=== PATIENT | female | born 1950 | race Two or more races ===

== ENCOUNTER 2016-04-17 20:10 | Emergency (ER) | payer OTHER, MEDICAID ==
[2016-04-17] MEDS ORDERED: ACETAMINOPHEN WITH CODEINE #3 TABLET PO ONE (21:54)
--- NOTE | 2016-04-17 21:54 | ER Document Report ---
ED General - General Chief Complaint: Medication Refill Stated Complaint: LOWER BACK PAIN TRAVEL OUTSIDE OF THE [place] IN LAST 30 DAYS: No - Related Data Allergies/Adverse Reactions: tramadol [Tramadol] Allergy (Verified 04/03/15 22:58) Past Medical History - General Information source: Patient - Social History Smoking Status: Never Smoker Family History: Reviewed & Not Pertinent Endocrine Medical History: Reports: Hx Diabetes Mellitus Type 2 Past Surgical History: Reports: Hx Cardiac Surgery Review of Systems - Review of Systems Constitutional: No symptoms reported EENT: No symptoms reported Cardiovascular: No symptoms reported Respiratory: No symptoms reported Gastrointestinal: No symptoms reported Genitourinary: No symptoms reported Female Genitourinary: No symptoms reported Musculoskeletal: Back pain, Muscle pain Skin: No symptoms reported Hematologic/Lymphatic: No symptoms reported Neurological/Psychological: No symptoms reported Physical Exam - Vital signs Vitals: Temp Pulse Resp BP Pulse Ox 98.0 F 60 20 148/66 H 95 04/17/16 21:10 04/17/16 21:10 04/17/16 21:10 04/17/16 21:10 04/17/16 21:10 Interpretation: Normal - General General appearance: Appears well, Alert - HEENT Head: Normocephalic, Atraumatic Eyes: Normal Pupils: PERRL - Respiratory Respiratory status: No respiratory distress Chest status: Nontender Breath sounds: Normal Chest palpation: Normal - Cardiovascular Rhythm: Regular Heart sounds: Normal auscultation Murmur: No - Abdominal Inspection: Normal Distension: No distension Bowel sounds: Normal Tenderness: Nontender Organomegaly: No organomegaly - Back Back: Normal - No numbness no tingling no loss of bowel or bladder function or saddle anesthesia ambulatory with arrhythmic limp, Nontender, Other - Lumbar pain lateral to the thoracic spine no step-off no crepitus no new injury. - Extremities General upper extremity: Normal inspection, Nontender, Normal color, Normal ROM , Normal temperature General lower extremity: Normal inspection, Nontender, Normal color, Normal ROM , Normal temperature, Normal weight bearing. No: Reymundo's sign - Neurological Neuro grossly intact: Yes Cognition: Normal Orientation: AAOx4 [place] Coma Scale Eye Opening: Spontaneous [place] Coma Scale Verbal: Oriented [place] Coma Scale Motor: Obeys Commands [place] Coma Scale Total: 15 Speech: Normal Motor strength normal: LUE, RUE, LLE, RLE Sensory: Normal - Psychological Associated symptoms: Normal affect, Normal mood - Skin Skin Temperature: Warm Skin Moisture: Dry Skin Color: Normal Course - Vital Signs Vital signs: Temp Pulse Resp BP Pulse Ox 98.0 F 60 20 148/66 H 95 04/17/16 21:10 04/17/16 21:10 04/17/16 21:10 04/17/16 21:10 04/17/16 21:10 Discharge - Discharge Clinical Impression: Low back pain Disposition: HOME, SELF-CARE Instructions: Chronic Back Pain ([facility])
[2016-04-17] MEDS ORDERED: KETOROLAC TROMETHAMINE 60 MG/2 ML SDV IM ONE (22:08)
[2016-04-17 22:27] VITALS: BP 149/59
== END 2016-04-17 22:27 | disposition home or self-care (01) ==
LOC: ER 20:10
DX: M54.5 Low back pain (principal)
CPT/HCPCS: 99281; 96372; A9270; J1885